=== PATIENT | female | born 1950 | race Asian ===

== ENCOUNTER 2019-01-21 07:53 | Day surgery (SDC) | payer MEDICARE, BC ==
--- NOTE | 2019-01-20 13:10 | PREOPHP ---
DATE OF ADMISSION: 01/21/2019 HISTORY OF PRESENT ILLNESS: This 68-year-old patient is admitted for elective cataract surgery of th e left eye. The patient has had decrease of vision in both eyes for approximately 2 years' time with out any prior history of eye disease or injury. PAST MEDICAL HISTORY: The patient does have a history of systemic hypertension and hypercholesterole bertha as well as noninsulin dependent diabetes mellitus. CURRENT MEDICATIONS: Include: 1. Amlodipine. 2. Atorvastatin. 3. Benazepril. 4. Glipizide. ALLERGIES: THE PATIENT DENIES ANY ALLERGIES TO MEDICATIONS. PHYSICAL EXAMINATION: Visual acuity with best correction is 20/20 in the right eye and 20/40 in the left eye. Slit lamp examination reveals cortical and nuclear sclerotic cataract changes in both eyes . Applanation tonometry is 17 mmHg in both eyes. Examination of the retina is within normal limits with the exception of minimal epiretinal membrane in the left eye and bilateral posterior vitreous se paration. DIAGNOSIS: Mixed cortical and nuclear cataracts, both eyes. PLAN: Cataract extraction with lens implant, left eye. The risks and alternatives to the surgery prather ve been discussed with the patient as well as the hope for improvement of visual acuity leading to gr eater ability to perform activities of daily living. The patient understands this and agrees to proc eed with surgery. Dictated By: MOJGAN RAINES/HARRISON Conf#: [id number] DID#: [id number]
[~2019-01-21] VITALS: Ht 160 cm; Wt 62.3 kg
[2019-01-21] VITALS (9 sets, daily range): BP systolic 92–145; BP diastolic 55–83; PULSE 60–72; RESP 16–24; Ht 160 cm; Wt 62.3 kg
[~2019-01-21 07:53] MED LIST: hydrALAzine 20 MG INJ ONE
[2019-01-21] MEDS ORDERED: ASCO500C7 PO (08:11)
[2019-01-21] MEDS ORDERED: CYAN500T46 PO (08:11)
[2019-01-21] MEDS ORDERED: MOXIFLOXACIN 0.5% 3 ML OPH OPER SCH (09:30)
[2019-01-21] MEDS ORDERED: CYCLOPENTOLATE/PHENYLEPH 2 ML OPH OPER SCH (09:30)
[2019-01-21] MEDS ORDERED: BALANCED SALT SOLN 500 ML OPH IRRIG IRR SCH (09:30)
[2019-01-21] MEDS ORDERED: DICLOFENAC 0.1% 2.5 ML OPH OPER SCH (09:30)
[2019-01-21] MEDS ORDERED: SOD CHLORIDE 0.9% 1,000 ML IV SCH (09:30)
[2019-01-21] MEDS ORDERED: TROPICAMIDE 1% 15 ML OPH OPER SCH (09:30)
--- NOTE | 2019-01-21 09:42 | PREAC ---
Date/Time of Note Date/Time of Note DATE: 01/21/19 TIME: 09:41 Anesthesia Eval and Record Evaluation Time Pre-Procedure Interview DATE: 01/21/19 TIME: 09:41 Age 68 Sex female NPO: 8 hrs Preoperative diagnosis Lt cataract Planned procedure Lt cataract extraction IOL implant Past Medical History Past Medical History: None Surgery & Anesthesia Issues No known issue Meds Anticoagulation: No Beta Melissa within 24 hr: No Reason Beta Melissa not given: Pt. not on B-Melissa Reported Medications Cyanocobalamin* (Vitamin B12*) 500 Mcg Tab, 500 MCG PO DAILY, TAB 01/21/19 Ascorbic Acid* (Vitamin C*) 500 Mg Capsule.sa, 500 MG PO DAILY, CAP 01/21/19 Current Medications Diclofenac Sodium (Voltaren 0.1%) 1 drop Q5 MIN X 3 OPER Last administered on 01/21/19at 09:15; Admin Dose 1 DROP; Start 01/21/19 at 09:30 Tropicamide (Mydriacyl 1%) 1 drop Q5 MIN X3 OPER Last administered on 01/21/19at 09:15; Admin Dose 1 DROP; Start 01/21/19 at 09:30 Moxifloxacin HCl (Vigamox) 1 drop Q5 MIN X 3 OPER Last administered on 01/21/19at 09:15; Admin Dose 1 DROP; Start 01/21/19 at 09:30 Cyclopentolate/ Phenylephrine (Cyclomydril Oph 2 ml) 1 drop Q5 MIN X 3 OPER Last administered on 01/21/19at 09:15; Admin Dose 1 DROP; Start 01/21/19 at 09:30 Sodium Chloride 1,000 ml @ 25 mls/hr Q24H IV ; Start 01/21/19 at 09:30 Sod Cl/Ca Cl/Mg Cl/Pot Cl (Bss) 500 ml ONCE IRR ; Start 01/21/19 at 09:30; Stop 01/21/19 at 12:00 Meds reviewed: Yes Allergies Coded Allergies: No Known Allergy (Unverified , 01/21/19) Allergies Reviewed: Yes Labs/Studies Labs Reviewed: Reviewed by anesthesiologist test: N/A Studies: ECG, CXR Pre-procedure Exam Airway: Adequate mouth opening, Adequate thyromental dist Mallampati: Mallampati I Teeth: Normal Lung: Normal Heart: Normal ASA Physical Status ASA physical status: 2 Emergency: None Planned Anesthetic General/MAC: MAC Planned Pain Management Local by surgeon Pre-operative Attestations Prior to commencing anesthesia and surgery, the patient was re-evaluated, there was verification of: *The patient's identity *The results of appropriate recent lab work and preoperative vital signs *The above evaluation not changing prior to induction *Anesthetic plan, risk benefits, alternative and complications discussed with patient/family; questions answered; patient/family understands, accepts and wishes to proceed. SHAHRIAR COREAS. MANAGER TRUST Jan 21, 2019 09:42
[2019-01-21] MEDS ORDERED: hydrALAzine 20 MG INJ IV PRN (10:00)
[2019-01-21] MEDS ORDERED: LABETALOL HCL 20MG INJ IV PRN (10:00)
[2019-01-21] MEDS ORDERED: CEFAZOLIN 1 GM INJ ONE (10:01)
[2019-01-21] MEDS ORDERED: DEXAMETHASONE 4 MG/ML 1 ML INJ ONE (10:01)
[2019-01-21] MEDS ORDERED: CARBACHOL 0.01% 1.5 ML OPH INJ ONE (10:01)
[2019-01-21] MEDS ORDERED: NA HYALURONATE/CHONDROITIN 0.5 ML SYG ONE (10:01)
[2019-01-21] MEDS ORDERED: LIDOCAINE 4% (MPF) 5 ML INJ ONE ×2 (10:01→10:37)
[2019-01-21] MEDS ORDERED: PROPOFOL 20 ML ONE (10:23)
--- NOTE | 2019-01-21 11:06 | PAC ---
Date/Time of Note Date/Time of Note DATE: 01/21/19 TIME: 11:06 Post-Anesthesia Notes Post-Anesthesia Note Last documented vital signs Vital Signs Date Temp Pulse Resp B/P (MAP) Pulse Ox O2 O2 Flow FiO2 Time Delivery Rate 01/21/19 97.6 69 16 124/71 97 Room Air 09:46 (88) Activity: WNL Respiratory function: WNL Cardiovascular function: WNL Mental status: Baseline Pain reasonably controlled: Yes Hydration appropriate: Yes Nausea/Vomiting absent: Yes SHAHRIAR COREAS CRNA Jan 21, 2019 11:06
--- NOTE | 2019-01-21 11:06 | SIPON ---
Date/Time of Note Date/Time of Note DATE: 01/21/19 TIME: 11:05 Operative Report Preoperative Diagnosis cataract os Postoperative Diagnosis same Operation/Procedure Performed cataract extraction with lens implant os Surgeon mojgan huff assistant store manager sales none Anesthesia: MAC Estimated blood loss: none Transfusion Required none Specimen none Grafts/Implants posterior chamber lens implant Complications none MOJGAN HUFF MD Jan 21, 2019 11:06
--- NOTE | 2019-01-21 12:29 | OPR ---
DATE OF OPERATION: 01/21/2019 PREOPERATIVE DIAGNOSIS: Cataract, left eye. POSTOPERATIVE DIAGNOSIS: Cataract, left eye. OPERATION PERFORMED: Cataract extraction with lens implant, left eye. SURGEON: Mojgan Ballesteros MD ANESTHESIOLOGIST: Aniya Pinto CRNA ANESTHESIA: Local standby. PROCEDURE: The patient was brought to the operating room and placed on the table with an IV in place and the patient attached to an teletypesetter monitor. Oxygen was given via face mask. After some intravenous sedation was administered, local anesthesia was given using Xylocaine 2% with epinephrine, mixed with Marcaine 0.5%. This was given in a lid block and retrobulbar injection. The p atient was then prepped and draped in the usual sterile manner. A wire lid speculum was inserted between the lids of the left eye. A Superblade was used to enter the anterior chamber at the corneoscleral limbus at the 10:30 o'clock position. A separate incision was made using a 3.0-mm keratome which entered the corneoscleral junction at the 12 o'clock position. Thr ough this 3-mm opening, an irrigating cystotome was introduced into the anterior chamber. The chamber was filled with Viscoat and an anterior capsulotomy was performed. Balanced salt solution was then u sed for hydrodissection of the lens. A phacoemulsification handpiece was then brought into the field and introduced into the anterior chamber. The lens nucleus was emulsified using a deep groove and cr acking the nucleus into quadrants. Following this, each quadrant was aspirated and emulsified at the pupillary margin. After this was completed, the irrigation/aspiration handpiece was brought to the field, introduced in to the posterior chamber, and the lens cortical material was removed. When this was completed, additi onal Viscoat was injected into the anterior and posterior chambers. The 3-mm opening had its internal lips enlarged, and then the posterior chamber intraocular lens cierra uring 21.5 diopters (Bausch and Lomb WizeHive [id number]) was then injected into the posterior chamber using the lens injector system. After the leading haptic was introduced into the capsular bag and th e lens optic was present in the center of the eye, the injector was removed and the trailing haptic w as grasped with non-toothed forceps and introduced into the capsular fold superiorly. A Sinskey hook was then used to rotate the intraocular lens so that the lips were oriented in the horizontal meridia n. One 10-0 nylon suture was placed across the wound. Prior to tying, the irrigation/aspiration handpiece was reintroduced into the anterior chamber to rem ove the Viscoat. Miochol was instilled to constrict the pupil, and then the 10-0 nylon suture was tie d. The ends were cut short and then the knot was buried. Then, 0.5 mL of dexamethasone and 0.5 mL of Ancef were injected into the sub-Tenon space in the infer ior fornix. Ciloxan drops were then placed on the surface of the eye. The speculum was removed and a patch was applied. The patient then left the operating room in satisfactory condition. Dictated By: MOJGAN RAINES/HARRISON Conf#: [id number] DID#: [id number]
== END 2019-01-21 12:31 | disposition home or self-care (01) ==
LOC: SDS 07:53
PROVIDERS: ATTEND Ophthalmology
DX: H26.8 Other specified cataract (principal)
CPT/HCPCS: J0360; J0690; J1100; V2632